=== PATIENT | female | born 1965 | race Caucasian/White ===

== ENCOUNTER 2019-10-11 13:50 | Inpatient (IN) ==
[~2019-10-11 13:50] MED LIST: Aminoglycoside Consult 1 EACH MC ONE
[2019-10-11] MEDS ORDERED: Isovue-370 500 ML BOTTLE IVP ONE (14:06)
[2019-10-11] MEDS ORDERED: *HR* Nalbuphine 10 MG/ML AMPUL IV ONE (14:12)
[2019-10-11 14:43] LABS: INR 1.4; Prothrombin Time 16.2 Seconds (9.4-12.1)
[2019-10-11 14:46] LABS: Hematocrit 31.6 % (35.3-44.9); Hemoglobin 9.2 g/dL (11.5-15.4); Mean Corpuscular HGB Conc 29.1 g/dL (31.6-35.5); Mean Corpuscular Hemoglobin 25.1 pg (28.0-33.3); Mean Corpuscular Volume 86.1 fL (83.0-100.0); Mean Platelet Volume 11.6 fL (9.4-12.4); Platelet Count 283 K/mcL (140-400); Red Blood Count 3.67 M/mcL (3.82-4.97)
[2019-10-11 14:54] LABS: Alanine Aminotransferase 5 Units/L (7-52); Albumin 3.6 g/dL (3.5-5.7); Albumin/Globulin Ratio 1.3 (1.1-2.2); Alkaline Phosphatase 57 Units/L (34-104); Aspartate Amino Transferase 12 Units/L (13-39); BUN/Creatinine Ratio 16 (6-26); Bilirubin,Total 0.5 mg/dL (0.3-1.0); Blood Urea Nitrogen 38 mg/dL (6-20); Calcium 9.2 mg/dL (8.6-10.3); Carbon Dioxide 17 mEq/L (23-29); Chloride 101 mEq/L (98-107); Globulin 2.8 g/dL (2.4-3.5); Glucose 93 mg/dL (70-105); Lipase 4 Units/L (11-82); Osmolality,Calculated 289 (280-300); Potassium 5.2 mEq/L (3.5-5.1); Sodium 135 mEq/L (136-145); Total Protein 6.4 g/dL (6.4-8.9); eGFR For African Americans 26 (> 60); eGFR For Non-African Americans 21 (> 60)
[2019-10-11 14:55] LABS: Troponin I < 0.03 ng/mL (< 0.04)
[2019-10-11 15:27] LABS: Lymphocytes # 1.3 K/mcL (0.6-4.6); Monocytes # 1.8 K/mcL (0.0-1.3); Platelet Estimate Normal (Normal)
[2019-10-11] MEDS ORDERED: levoFLOXacin 500 MG/100 ML 500 MG/100 ML BAG IVPB ONE (15:58)
[2019-10-11] MEDS ORDERED: Piperacillin/Tazobactam 3.375 GM in 0.9 % Sodium Chloride Mini Bag 100 ML IVPB ONE (15:58)
[2019-10-11] MEDS ORDERED: Piperacillin/Tazobactam 3.375 GM in Water for inj. (sterile) 20 ML IVP ONE (16:08)
[2019-10-11] MEDS ORDERED: 0.9 % Sodium Chloride 1,000 ML IVC ONE ×3 (16:27→16:28)
[2019-10-11 16:59] LABS: ABG Base Excess -6 mEq/L (-2 to 3); ABG HCO3 19 mEq/L (21-27); ABG Oxygen Saturation 99 % (95-98); ABG PCO2 37 mmHg (35-45); ABG PH 7.32 pH Units (7.32-7.45); ABG PO2 150 mmHg (85-104); ABG TCO2 20 mEq/L (20-26); Blood Gas Pressure Support 14 cm H2O
[2019-10-11 17:57] LABS: Thyroid Stimulating Hormone 3.613 mcIU/mL (0.340-5.600); Triiodothyronine (T3) Total 0.34 ng/mL (0.87-1.78)
[2019-10-11] MEDS ORDERED: Naloxone 0.4 MG/ML INJ IVP PRN (18:15)
[2019-10-11] MEDS ORDERED: D5% in Water 1,000 ML IVC PRN (18:15)
[2019-10-11] MEDS ORDERED: Dextrose Gel 15 GM/37.5 ML TUBE PO PRN ×2 (18:15)
[2019-10-11] MEDS ORDERED: *HR* Dextrose 50 % in Water (Syg) 50 ML SYRINGE IVP PRN (18:15)
[2019-10-11] MEDS ORDERED: Albuterol 2.5 MG/3 ML NEBULIZER IH PRN (18:25)
[2019-10-11] MEDS ORDERED: Vancomycin (wt based) 1,000 MG VIAL IVPB SCH (19:00)
[2019-10-11] MEDS: Dexmedetomidine HCl 400 MCG/100 ML MLS IVC SCH (19:43)
[2019-10-11 20:14] LABS: Estimated Average Glucose 169 mg/dl
[2019-10-11 20:18] LABS: ABG Base Excess -6 mEq/L (-2 to 3); ABG HCO3 19 mEq/L (21-27); ABG Oxygen Saturation 94 % (95-98); ABG PCO2 38 mmHg (35-45); ABG PH 7.32 pH Units (7.32-7.45); ABG PO2 75 mmHg (85-104); ABG TCO2 20 mEq/L (20-26); Blood Gas Modality NIV
[2019-10-11] MEDS: Ipratropium/Albuterol Neb 3 ML IH SCH ×2 (20:18→23:34)
[2019-10-11 20:49] LABS: Adenovirus Not Detected (Not Detect); Bordetella Pertussis Not Detected (Not Detect); Chlamydophila pneumoniae Not Detected (Not Detect); Coronavirus 229E Not Detected (Not Detect); Coronavirus HKU1 Not Detected (Not Detect); Coronavirus NL63 Not Detected (Not Detect); Coronavirus OC43 Not Detected (Not Detect); Human Metapneumovirus Not Detected (Not Detect); Human Rhinovirus/Enterovirus Not Detected (Not Detect); Influenza A Subtype 2009 H1 Not Detected (Not Detect); Influenza B Not Detected (Not Detect); Mycoplasma pneumoniae Not Detected (Not Detect); Parainfluenza Virus 1 Not Detected (Not Detect); Parainfluenza Virus 2 Not Detected (Not Detect); Parainfluenza Virus 3 Not Detected (Not Detect); Parainfluenza Virus 4 Not Detected (Not Detect); Respiratory Syncytial Virus Not Detected (Not Detect)
[2019-10-11 20:59] LABS: Albumin 3.1 g/dL (3.5-5.7); Albumin/Globulin Ratio 1.1 (1.1-2.2); Bilirubin,Total 0.4 mg/dL (0.3-1.0); Calcium 8.3 mg/dL (8.6-10.3); Globulin 2.7 g/dL (2.4-3.5); Potassium 5.7 mEq/L (3.5-5.1); Total Protein 5.8 g/dL (6.4-8.9)
[2019-10-11] MEDS ORDERED: Perflutren Lipid Microsphere 1.3 ML in 0.9 % Sodium Chloride 8.7 ML IVP ONE (21:24)
[2019-10-11 22:15] LABS: Bilirubin,Urine Small (Negative); Blood,Urine Negative (Negative); Clarity,Urine Cloudy (Clear); Color,Urine Yellow (Yellow); Glucose,Urine (UA) Normal (Normal); Ketones,Urine Trace mg/dL (Negative); Leukocyte Esterase,Urine Moderate (Negative); Nitrite,Urine Negative (Negative); Protein,Urine 100 mg/dL (Neg-Trace); Specific Gravity,Urine 1.026 (1.010-1.025); Urobilinogen,Urine Normal (Normal)
[2019-10-11 22:18] LABS: Bacteria,Urine None Seen per hpf (None-Few); Hyaline Casts,Urine None Seen per lpf (None-Few); Squamous Epithelial Cell,Urine Many per lpf (None-Few); WBC,Urine 50-100 per hpf (0-3)
[2019-10-11] MEDS: 0.9 % Sodium Chloride 1,000 ML IVC SCH (22:29)
[2019-10-11 22:33] LABS: Renal Epithelial Cells,Urine Few per hpf (None-Few)
[2019-10-11] MEDS: *HR* Heparin 5,000 UNIT/ML VIAL SQ SCH (23:58)
[2019-10-11] MEDS: Insulin LISPRO 300 UNITS/3 ML VIAL SQ SCH (23:59)
[2019-10-11] MEDS: Piperacillin/Tazobactam 3.375 GM in 0.9 % Sodium Chloride Mini Bag 100 ML IVPB SCH (23:59)
[2019-10-12] MEDS: Ipratropium/Albuterol Neb 3 ML IH SCH ×5 (03:28→20:50)
[2019-10-12 05:07] LABS: Hematocrit 24.5 % (35.3-44.9); Mean Corpuscular HGB Conc 30.2 g/dL (31.6-35.5); Mean Corpuscular Hemoglobin 25.8 pg (28.0-33.3); Mean Corpuscular Volume 85.4 fL (83.0-100.0); Mean Platelet Volume 11.2 fL (9.4-12.4); Platelet Count 200 K/mcL (140-400); Red Blood Count 2.87 M/mcL (3.82-4.97); Red Cell Distribution Width 14.9 % (11.5-14.5); White Blood Count 13.3 K/mcL (4.3-11.1)
[2019-10-12 05:11] LABS: INR 1.4; Prothrombin Time 16.4 Seconds (9.4-12.1)
[2019-10-12 05:13] LABS: Hemoglobin 7.4 g/dL (11.5-15.4)
[2019-10-12 05:26] LABS: Calcium 7.9 mg/dL (8.6-10.3); Potassium 5.7 mEq/L (3.5-5.1)
[2019-10-12] MEDS: Insulin LISPRO 300 UNITS/3 ML VIAL SQ SCH ×4 (05:32→23:24)
[2019-10-12] MEDS: Doxycycline 100 MG in 0.9 % Sodium Chloride Mini Bag 100 ML IVPB SCH ×2 (05:32→17:32)
[2019-10-12 05:45] LABS: Lymphocytes # 1.9 K/mcL (0.6-4.6); Monocytes # 0.5 K/mcL (0.0-1.3); Neutrophils # 10.9 K/mcL (1.6-8.9); Platelet Estimate Normal (Normal)
[2019-10-12] MEDS ORDERED: Calcium Gluconate 1gm/50mL 1 GM/50 ML BAG IVPB PRN (05:49)
[2019-10-12] MEDS ORDERED: Potassium Phosphate 44 MEQ in 0.9 % Sodium Chloride 250 ML IVPB PRN (05:49)
[2019-10-12] MEDS: Dexmedetomidine HCl 400 MCG/100 ML MLS IVC SCH ×2 (06:39→23:39)
[2019-10-12] MEDS: Piperacillin/Tazobactam 3.375 GM in 0.9 % Sodium Chloride Mini Bag 100 ML IVPB SCH ×3 (07:41→23:38)
[2019-10-12] MEDS: Pantoprazole 40 MG VIAL IVP SCH (07:41)
[2019-10-12] MEDS: *HR* Heparin 5,000 UNIT/ML VIAL SQ SCH ×3 (07:41→23:22)
[2019-10-12] MEDS ORDERED: Insulin Human Regular 10 UNIT in 0.9 % Sodium Chloride 10 ML IV ONE (09:20)
[2019-10-12] MEDS ORDERED: *HR* Dextrose 50 % in Water (Syg) 50 ML SYRINGE IVP ONE (09:20)
[2019-10-12] MEDS ORDERED: Calcium Gluconate 1gm/50mL 1 GM/50 ML BAG IVPB ONE (09:30)
[2019-10-12] MEDS: 0.9 % Sodium Chloride 1,000 ML IVC SCH (10:59)
[2019-10-12] MEDS: SODIUM ZIRCONIUM CYCLOSILICATE 5 GM POWD.PACK PO SCH (11:05)
[2019-10-12] MEDS: Albumin Human 5% 12.5 GM/250 ML IV.SOLN IVC SCH ×2 (11:06→11:27)
[2019-10-12 12:24] LABS: Protein/Creatinine Ratio,Urine 0.91 mg/mg (0.00-0.20)
[2019-10-12 15:16] LABS: Calcium 8.7 mg/dL (8.6-10.3); Magnesium 1.5 mg/dL (1.6-2.6); Potassium 4.6 mEq/L (3.5-5.1)
[2019-10-12 15:18] LABS: Creatine Kinase 58 Units/L (30-223); Iron < 10 mcg/dL (50-170); Transferrin 167 mg/dL (203-362); Uric Acid 8.3 mg/dL (2.3-7.6)
[2019-10-12 15:41] LABS: Folate 18.6 ng/mL (3.0-16.0)
[2019-10-12] MEDS: Acetaminophen 325 MG TABLET PO PRN (23:22)
[2019-10-13] MEDS: Ipratropium/Albuterol Neb 3 ML IH SCH ×7 (00:01→19:23)
[2019-10-13] MEDS: 0.9 % Sodium Chloride 1,000 ML IVC SCH ×2 (02:31→12:57)
[2019-10-13] MEDS: Insulin LISPRO 300 UNITS/3 ML VIAL SQ SCH ×4 (05:57→20:56)
[2019-10-13] MEDS: Doxycycline 100 MG in 0.9 % Sodium Chloride Mini Bag 100 ML IVPB SCH (05:58)
[2019-10-13 06:26] LABS: ABG Ionized Calcium 1.19 mmol/L (1.15-1.35)
[2019-10-13 06:56] LABS: Basophils % 0.2 %; Hematocrit 24.6 % (35.3-44.9); Hemoglobin 7.3 g/dL (11.5-15.4); Immature Granulocytes % 0.3 % (0-4); Lymphocytes # 1.1 K/mcL (0.6-4.6); Mean Corpuscular HGB Conc 29.7 g/dL (31.6-35.5); Mean Corpuscular Hemoglobin 24.9 pg (28.0-33.3); Mean Platelet Volume 11.9 fL (9.4-12.4); Monocytes # 0.5 K/mcL (0.0-1.3); Platelet Count 234 K/mcL (140-400); Red Blood Count 2.93 M/mcL (3.82-4.97); Red Cell Distribution Width 15.1 % (11.5-14.5); White Blood Count 11.5 K/mcL (4.3-11.1)
[2019-10-13 07:10] LABS: Magnesium 1.9 mg/dL (1.6-2.6); Phosphorous 3.4 mg/dL (2.7-4.5)
[2019-10-13 07:11] LABS: Calcium 8.9 mg/dL (8.6-10.3); Potassium 4.6 mEq/L (3.5-5.1)
[2019-10-13 08:27] LABS: Hypochromasia Present (Not Present); Platelet Estimate Normal (Normal); Toxic Granulation Present (Not Present)
[2019-10-13 08:29] LABS: Neutrophils # 10.4 K/mcL (1.6-8.9)
[2019-10-13] MEDS: *HR* Heparin 5,000 UNIT/ML VIAL SQ SCH ×2 (08:36→16:56)
[2019-10-13] MEDS: Pantoprazole 40 MG VIAL IVP SCH (08:36)
[2019-10-13] MEDS: Piperacillin/Tazobactam 3.375 GM in 0.9 % Sodium Chloride Mini Bag 100 ML IVPB SCH ×2 (08:37→16:56)
[2019-10-13] MEDS: SODIUM ZIRCONIUM CYCLOSILICATE 5 GM POWD.PACK PO SCH (08:46)
[2019-10-13 10:40] LABS: ABG Base Excess -1 mEq/L (-2 to 3); ABG HCO3 24 mEq/L (21-27); ABG Oxygen Saturation 94 % (95-98); ABG PCO2 41 mmHg (35-45); ABG PH 7.38 pH Units (7.32-7.45); ABG PO2 71 mmHg (85-104); ABG TCO2 25 mEq/L (20-26)
[2019-10-13] MEDS ORDERED: ALPRAZolam 0.5 MG TABLET PO PRN (12:43)
[2019-10-13] MEDS ORDERED: Levalbuterol Neb 1.25 MG/3 ML IH PRN ×2 (12:45→20:00)
[2019-10-13] MEDS: Acetaminophen 325 MG TABLET PO PRN ×2 (14:06→22:36)
[2019-10-13] MEDS ORDERED: *HR* Dextrose 50 % in Water (Syg) 50 ML SYRINGE IVP PRN (15:52)
[2019-10-13] MEDS ORDERED: Naloxone 0.4 MG/ML INJ IVP PRN (15:52)
[2019-10-13] MEDS ORDERED: Dextrose Gel 15 GM/37.5 ML TUBE PO PRN ×2 (15:52)
[2019-10-13] MEDS ORDERED: D5% in Water 1,000 ML IVC PRN (15:52)
[2019-10-13] MEDS ORDERED: Insulin LISPRO 300 UNITS/3 ML VIAL SQ SCH (18:00)
[2019-10-13] MEDS: OLANZapine 5 MG TAB.RAPDIS PO SCH (20:55)
[2019-10-13] MEDS: FLUoxetine 20 MG CAPSULE PO SCH (20:56)
[2019-10-13] MEDS ORDERED: FLUoxetine 20 MG CAPSULE PO SCH (21:00)
[2019-10-13] MEDS ORDERED: OLANZapine 5 MG TAB.RAPDIS PO SCH (21:00)
[2019-10-13] MEDS: Levalbuterol Neb 1.25 MG/3 ML IH SCH (23:21)
[2019-10-14] MEDS: *HR* Heparin 5,000 UNIT/ML VIAL SQ SCH ×4 (00:50→23:31)
[2019-10-14] MEDS: Piperacillin/Tazobactam 3.375 GM in 0.9 % Sodium Chloride Mini Bag 100 ML IVPB SCH ×2 (00:50→08:22)
[2019-10-14] MEDS ORDERED: Melatonin 3 MG TABLET PO ONE (02:10)
[2019-10-14] MEDS: Levalbuterol Neb 1.25 MG/3 ML IH SCH ×6 (03:17→23:23)
[2019-10-14 06:14] LABS: Basophils % 0.1 %; Eosinophils % 0.2 %; Hematocrit 28.4 % (35.3-44.9); Hemoglobin 8.4 g/dL (11.5-15.4); Immature Granulocytes % 0.7 % (0-4); Lymphocytes # 0.9 K/mcL (0.6-4.6); Lymphocytes % 6.9 %; Mean Corpuscular HGB Conc 29.6 g/dL (31.6-35.5); Mean Corpuscular Hemoglobin 24.7 pg (28.0-33.3); Mean Corpuscular Volume 83.5 fL (83.0-100.0); Monocytes # 0.6 K/mcL (0.0-1.3); Monocytes % 4.6 %; Neutrophils # 11.9 K/mcL (1.6-8.9); Platelet Count 279 K/mcL (140-400); Red Cell Distribution Width 15.3 % (11.5-14.5); Segmented Neutrophils % 87.5 %; White Blood Count 13.6 K/mcL (4.3-11.1)
[2019-10-14 06:30] LABS: % Iron Saturation 6 % (15-50); Alanine Aminotransferase 4 Units/L (7-52); Albumin 3.3 g/dL (3.5-5.7); Alkaline Phosphatase 77 Units/L (34-104); Aspartate Amino Transferase 21 Units/L (13-39); BUN/Creatinine Ratio 20 (6-26); Bilirubin,Total 0.6 mg/dL (0.3-1.0); Blood Urea Nitrogen 22 mg/dL (6-20); Calcium 9.4 mg/dL (8.6-10.3); Carbon Dioxide 24 mEq/L (23-29); Chloride 104 mEq/L (98-107); Globulin 3.2 g/dL (2.4-3.5); Glucose 215 mg/dL (70-105); Iron 15 mcg/dL (50-170); Magnesium 1.6 mg/dL (1.6-2.6); Osmolality,Calculated 292 (280-300); Phosphorous 2.7 mg/dL (2.7-4.5); Sodium 136 mEq/L (136-145); Total Protein 6.5 g/dL (6.4-8.9); Transferrin 179 mg/dL (203-362); eGFR For African Americans > 60 (> 60); eGFR For Non-African Americans 51 (> 60)
[2019-10-14] MEDS: Pantoprazole 40 MG VIAL IVP SCH (08:22)
[2019-10-14] MEDS: FLUoxetine 20 MG CAPSULE PO SCH (08:22)
[2019-10-14] MEDS: Insulin LISPRO 300 UNITS/3 ML VIAL SQ SCH ×4 (08:23→20:05)
[2019-10-14] MEDS: Acetaminophen 325 MG TABLET PO PRN (10:28)
[2019-10-14] MEDS: *HR* Promethazine 25 MG/ML VIAL IVP PRN ×2 (11:16→20:05)
[2019-10-14] MEDS: Ampicillin/Sulbactam 1,500 MG in 0.9 % Sodium Chloride Mini Bag 100 ML IVPB SCH ×3 (12:36→23:34)
[2019-10-14] MEDS: Cyanocobalamin (B-12) 1,000 MCG TABLET PO SCH (16:08)
[2019-10-14] MEDS: OLANZapine 5 MG TAB.RAPDIS PO SCH (20:05)
[2019-10-14] MEDS: ALPRAZolam 0.5 MG TABLET PO PRN (20:10)
[2019-10-15] MEDS: Levalbuterol Neb 1.25 MG/3 ML IH SCH ×5 (03:09→20:16)
[2019-10-15] MEDS: Ampicillin/Sulbactam 1,500 MG in 0.9 % Sodium Chloride Mini Bag 100 ML IVPB SCH ×4 (05:40→23:13)
[2019-10-15] MEDS ORDERED: Levothyroxine Sodium 100 MCG VIAL IVP SCH (06:30)
[2019-10-15 07:09] LABS: Hematocrit 26.1 % (35.3-44.9); Hemoglobin 7.7 g/dL (11.5-15.4); Mean Corpuscular HGB Conc 29.5 g/dL (31.6-35.5); Mean Corpuscular Hemoglobin 24.7 pg (28.0-33.3); Mean Corpuscular Volume 83.7 fL (83.0-100.0); Mean Platelet Volume 10.3 fL (9.4-12.4); Platelet Count 254 K/mcL (140-400); Red Blood Count 3.12 M/mcL (3.82-4.97); Red Cell Distribution Width 15.5 % (11.5-14.5); White Blood Count 11.6 K/mcL (4.3-11.1)
[2019-10-15 07:28] LABS: BUN/Creatinine Ratio 20 (6-26); Blood Urea Nitrogen 19 mg/dL (6-20); Calcium 9.1 mg/dL (8.6-10.3); Carbon Dioxide 24 mEq/L (23-29); Chloride 106 mEq/L (98-107); Glucose 201 mg/dL (70-105); Osmolality,Calculated 292 (280-300); Sodium 137 mEq/L (136-145); eGFR For African Americans > 60 (> 60); eGFR For Non-African Americans > 60 (> 60)
[2019-10-15 07:53] LABS: Bilirubin,Urine Small (Negative); Blood,Urine Negative (Negative); Clarity,Urine Clear (Clear); Color,Urine Yellow (Yellow); Glucose,Urine (UA) Normal (Normal); Ketones,Urine Trace mg/dL (Negative); Leukocyte Esterase,Urine Negative (Negative); Nitrite,Urine Negative (Negative); PH,Urine 5.5 pH Units (5.0-8.0); Protein,Urine >=300 mg/dL (Neg-Trace); Specific Gravity,Urine 1.028 (1.010-1.025); Urobilinogen,Urine Normal (Normal)
[2019-10-15 07:56] LABS: Bacteria,Urine None Seen per hpf (None-Few); Hyaline Casts,Urine Few per lpf (None-Few); RBC,Urine 0-3 per hpf (0-3); Squamous Epithelial Cell,Urine Many per lpf (None-Few)
[2019-10-15 08:15] LABS: Renal Epithelial Cells,Urine Few per hpf (None-Few); Yeast,Urine Few per hpf (None Seen)
[2019-10-15] MEDS: Insulin LISPRO 300 UNITS/3 ML VIAL SQ SCH ×4 (08:36→20:28)
[2019-10-15] MEDS: Pantoprazole 40 MG VIAL IVP SCH (08:36)
[2019-10-15] MEDS: *HR* Heparin 5,000 UNIT/ML VIAL SQ SCH ×3 (08:36→23:46)
[2019-10-15] MEDS: Cyanocobalamin (B-12) 1,000 MCG TABLET PO SCH (08:36)
[2019-10-15] MEDS: FLUoxetine 20 MG CAPSULE PO SCH (08:36)
[2019-10-15] MEDS ORDERED: Furosemide 40 MG/4 ML VIAL IVP ONE (13:37)
[2019-10-15] MEDS: OLANZapine 5 MG TAB.RAPDIS PO SCH (20:28)
[2019-10-15] MEDS: Insulin DETEMIR 100 UNIT/ML X5UNITS SQ SCH (20:28)
[2019-10-15] MEDS: Acetaminophen 325 MG TABLET PO PRN (20:31)
[2019-10-15] MEDS: ALPRAZolam 0.5 MG TABLET PO PRN (20:58)
[2019-10-16] MEDS: Levalbuterol Neb 1.25 MG/3 ML IH SCH ×7 (03:54→23:28)
[2019-10-16] MEDS: Ampicillin/Sulbactam 1,500 MG in 0.9 % Sodium Chloride Mini Bag 100 ML IVPB SCH ×4 (05:37→23:30)
[2019-10-16 05:48] LABS: Hematocrit 27.7 % (35.3-44.9); Hemoglobin 8.1 g/dL (11.5-15.4); Mean Corpuscular HGB Conc 29.2 g/dL (31.6-35.5); Mean Corpuscular Hemoglobin 24.6 pg (28.0-33.3); Mean Corpuscular Volume 84.2 fL (83.0-100.0); Mean Platelet Volume 11.4 fL (9.4-12.4); Platelet Count 255 K/mcL (140-400); Red Blood Count 3.29 M/mcL (3.82-4.97); Red Cell Distribution Width 15.4 % (11.5-14.5); White Blood Count 10.3 K/mcL (4.3-11.1)
[2019-10-16 05:53] LABS: BUN/Creatinine Ratio 26 (6-26); Blood Urea Nitrogen 28 mg/dL (6-20); Calcium 10.2 mg/dL (8.6-10.3); Carbon Dioxide 24 mEq/L (23-29); Chloride 106 mEq/L (98-107); Glucose 196 mg/dL (70-105); Osmolality,Calculated 303 (280-300); Potassium 4.7 mEq/L (3.5-5.1); Sodium 141 mEq/L (136-145); eGFR For African Americans > 60 (> 60); eGFR For Non-African Americans 52 (> 60)
[2019-10-16] MEDS: Furosemide 40 MG/4 ML VIAL IVP SCH ×2 (08:47→16:52)
[2019-10-16] MEDS: Insulin LISPRO 300 UNITS/3 ML VIAL SQ SCH ×4 (08:47→19:51)
[2019-10-16] MEDS: *HR* Heparin 5,000 UNIT/ML VIAL SQ SCH ×3 (08:47→23:31)
[2019-10-16] MEDS: Cyanocobalamin (B-12) 1,000 MCG TABLET PO SCH (08:48)
[2019-10-16] MEDS: FLUoxetine 20 MG CAPSULE PO SCH (08:48)
[2019-10-16] MEDS: Acetaminophen 325 MG TABLET PO PRN ×2 (12:31→22:01)
[2019-10-16] MEDS: Insulin DETEMIR 100 UNIT/ML X5UNITS SQ SCH (19:51)
[2019-10-16] MEDS: OLANZapine 5 MG TAB.RAPDIS PO SCH (19:51)
[2019-10-16] MEDS: ALPRAZolam 0.5 MG TABLET PO PRN (20:08)
[2019-10-17] MEDS: Levalbuterol Neb 1.25 MG/3 ML IH SCH ×6 (03:35→23:56)
[2019-10-17 04:06] LABS: Hematocrit 27.1 % (35.3-44.9); Hemoglobin 8.1 g/dL (11.5-15.4); Mean Corpuscular HGB Conc 29.9 g/dL (31.6-35.5); Mean Corpuscular Hemoglobin 25.5 pg (28.0-33.3); Mean Corpuscular Volume 85.2 fL (83.0-100.0); Mean Platelet Volume 10.6 fL (9.4-12.4); Platelet Count 263 K/mcL (140-400); Red Blood Count 3.18 M/mcL (3.82-4.97); Red Cell Distribution Width 15.2 % (11.5-14.5); White Blood Count 9.8 K/mcL (4.3-11.1)
[2019-10-17 04:28] LABS: BUN/Creatinine Ratio 26 (6-26); Blood Urea Nitrogen 27 mg/dL (6-20); Calcium 8.9 mg/dL (8.6-10.3); Carbon Dioxide 27 mEq/L (23-29); Chloride 104 mEq/L (98-107); Glucose 180 mg/dL (70-105); Osmolality,Calculated 298 (280-300); Potassium 3.6 mEq/L (3.5-5.1); Sodium 139 mEq/L (136-145); eGFR For African Americans > 60 (> 60); eGFR For Non-African Americans 56 (> 60)
[2019-10-17] MEDS: Ampicillin/Sulbactam 1,500 MG in 0.9 % Sodium Chloride Mini Bag 100 ML IVPB SCH ×4 (05:58→23:51)
[2019-10-17] MEDS: Acetaminophen 325 MG TABLET PO PRN (05:58)
[2019-10-17] MEDS: Furosemide 40 MG/4 ML VIAL IVP SCH ×2 (08:46→16:09)
[2019-10-17] MEDS: FLUoxetine 20 MG CAPSULE PO SCH (08:46)
[2019-10-17] MEDS: Cyanocobalamin (B-12) 1,000 MCG TABLET PO SCH (08:46)
[2019-10-17] MEDS: *HR* Heparin 5,000 UNIT/ML VIAL SQ SCH ×3 (08:46→23:53)
[2019-10-17] MEDS: Insulin LISPRO 300 UNITS/3 ML VIAL SQ SCH ×4 (08:47→20:37)
[2019-10-17] MEDS: *HR* Promethazine 25 MG/ML VIAL IVP PRN (16:53)
[2019-10-17] MEDS: ALPRAZolam 0.5 MG TABLET PO PRN (20:34)
[2019-10-17] MEDS: OLANZapine 5 MG TAB.RAPDIS PO SCH (20:34)
[2019-10-17] MEDS: Insulin DETEMIR 100 UNIT/ML X5UNITS SQ SCH (20:35)
[2019-10-18] MEDS: Levalbuterol Neb 1.25 MG/3 ML IH SCH ×6 (04:10→23:54)
[2019-10-18] MEDS: Ampicillin/Sulbactam 1,500 MG in 0.9 % Sodium Chloride Mini Bag 100 ML IVPB SCH ×4 (05:40→23:22)
[2019-10-18 06:45] LABS: White Blood Count 9.9 K/mcL (4.3-11.1)
[2019-10-18 06:46] LABS: Basophils % 0.4 %; Eosinophils # 0.2 K/mcL (0.0-0.6); Eosinophils % 1.5 %; Hematocrit 27.1 % (35.3-44.9); Lymphocytes # 2.1 K/mcL (0.6-4.6); Lymphocytes % 20.7 %; Mean Corpuscular HGB Conc 29.5 g/dL (31.6-35.5); Mean Corpuscular Hemoglobin 24.9 pg (28.0-33.3); Mean Corpuscular Volume 84.4 fL (83.0-100.0); Mean Platelet Volume 10.7 fL (9.4-12.4); Monocytes % 9.8 %; Neutrophils # 6.2 K/mcL (1.6-8.9); Nucleated Red Blood Cells 0.3 /100 WBC (0); Platelet Count 342 K/mcL (140-400); Red Blood Count 3.21 M/mcL (3.82-4.97); Red Cell Distribution Width 15.5 % (11.5-14.5); Segmented Neutrophils % 62.6 %
[2019-10-18 07:02] LABS: BUN/Creatinine Ratio 30 (6-26); Blood Urea Nitrogen 28 mg/dL (6-20); Calcium 8.8 mg/dL (8.6-10.3); Carbon Dioxide 28 mEq/L (23-29); Chloride 103 mEq/L (98-107); Glucose 188 mg/dL (70-105); Osmolality,Calculated 298 (280-300); Potassium 3.8 mEq/L (3.5-5.1); Sodium 139 mEq/L (136-145); eGFR For African Americans > 60 (> 60); eGFR For Non-African Americans > 60 (> 60)
[2019-10-18] MEDS: Cyanocobalamin (B-12) 1,000 MCG TABLET PO SCH (08:35)
[2019-10-18] MEDS: FLUoxetine 20 MG CAPSULE PO SCH (08:36)
[2019-10-18] MEDS: Furosemide 40 MG/4 ML VIAL IVP SCH ×2 (08:36→17:49)
[2019-10-18] MEDS: Insulin LISPRO 300 UNITS/3 ML VIAL SQ SCH ×4 (08:37→21:15)
[2019-10-18] MEDS: *HR* Heparin 5,000 UNIT/ML VIAL SQ SCH ×3 (08:37→23:22)
[2019-10-18] MEDS ORDERED: 0.9 % Sodium Chloride Mini Bag 100 ML ONE (11:58)
[2019-10-18] MEDS: OLANZapine 5 MG TAB.RAPDIS PO SCH (21:13)
[2019-10-18] MEDS: Acetaminophen 325 MG TABLET PO PRN (21:13)
[2019-10-18] MEDS: ALPRAZolam 0.5 MG TABLET PO PRN (21:13)
[2019-10-18] MEDS: Insulin DETEMIR 100 UNIT/ML X5UNITS SQ SCH (21:17)
[2019-10-19] MEDS: Levalbuterol Neb 1.25 MG/3 ML IH SCH ×6 (03:56→23:44)
[2019-10-19 05:00] LABS: Eosinophils # 0.2 K/mcL (0.0-0.6); Hematocrit 28.9 % (35.3-44.9); Hemoglobin 8.4 g/dL (11.5-15.4); Lymphocytes # 2.5 K/mcL (0.6-4.6); Mean Corpuscular HGB Conc 29.1 g/dL (31.6-35.5); Mean Corpuscular Hemoglobin 24.7 pg (28.0-33.3); Mean Platelet Volume 10.7 fL (9.4-12.4); Platelet Count 383 K/mcL (140-400); Red Cell Distribution Width 15.5 % (11.5-14.5); White Blood Count 10.5 K/mcL (4.3-11.1)
[2019-10-19 05:12] LABS: BUN/Creatinine Ratio 28 (6-26); Blood Urea Nitrogen 26 mg/dL (6-20); Calcium 9.1 mg/dL (8.6-10.3); Carbon Dioxide 28 mEq/L (23-29); Chloride 101 mEq/L (98-107); Glucose 191 mg/dL (70-105); Osmolality,Calculated 298 (280-300); Potassium 3.8 mEq/L (3.5-5.1); Sodium 139 mEq/L (136-145); eGFR For African Americans > 60 (> 60); eGFR For Non-African Americans > 60 (> 60)
[2019-10-19 06:15] LABS: Hypochromasia Present (Not Present); Monocytes # 0.2 K/mcL (0.0-1.3); Neutrophils # 7.6 K/mcL (1.6-8.9); Platelet Estimate Normal (Normal); Poikilocytosis 1+ (Not Present)
[2019-10-19] MEDS: Ampicillin/Sulbactam 1,500 MG in 0.9 % Sodium Chloride Mini Bag 100 ML IVPB SCH ×3 (06:22→17:24)
[2019-10-19] MEDS: *HR* Heparin 5,000 UNIT/ML VIAL SQ SCH ×2 (08:40→17:24)
[2019-10-19] MEDS: Insulin LISPRO 300 UNITS/3 ML VIAL SQ SCH ×4 (08:40→20:30)
[2019-10-19] MEDS: Furosemide 40 MG/4 ML VIAL IVP SCH ×2 (08:40→17:25)
[2019-10-19] MEDS: Cyanocobalamin (B-12) 1,000 MCG TABLET PO SCH (08:40)
[2019-10-19] MEDS: FLUoxetine 20 MG CAPSULE PO SCH (08:40)
[2019-10-19] MEDS: Acetaminophen 325 MG TABLET PO PRN ×2 (12:21→20:29)
[2019-10-19] MEDS: OLANZapine 5 MG TAB.RAPDIS PO SCH (20:29)
[2019-10-19] MEDS: Insulin DETEMIR 100 UNIT/ML X5UNITS SQ SCH (20:30)
[2019-10-20] MEDS: ALPRAZolam 0.5 MG TABLET PO PRN ×2 (00:15→22:05)
[2019-10-20] MEDS: *HR* Heparin 5,000 UNIT/ML VIAL SQ SCH ×4 (00:21→23:44)
[2019-10-20] MEDS: Ampicillin/Sulbactam 1,500 MG in 0.9 % Sodium Chloride Mini Bag 100 ML IVPB SCH ×5 (00:23→23:44)
[2019-10-20] MEDS: Levalbuterol Neb 1.25 MG/3 ML IH SCH ×6 (03:30→23:42)
[2019-10-20 04:47] LABS: Hematocrit 28.9 % (35.3-44.9); Hemoglobin 8.5 g/dL (11.5-15.4)
[2019-10-20] MEDS: Acetaminophen 325 MG TABLET PO PRN ×2 (08:47→17:27)
[2019-10-20] MEDS: Insulin LISPRO 300 UNITS/3 ML VIAL SQ SCH ×4 (09:46→19:52)
[2019-10-20] MEDS: Cyanocobalamin (B-12) 1,000 MCG TABLET PO SCH (09:47)
[2019-10-20] MEDS: FLUoxetine 20 MG CAPSULE PO SCH (09:48)
[2019-10-20] MEDS: Furosemide 40 MG/4 ML VIAL IVP SCH ×2 (09:48→17:28)
[2019-10-20] MEDS ORDERED: Insulin DETEMIR 100 UNIT/ML X5UNITS SQ ONE (11:59)
[2019-10-20] MEDS: OLANZapine 5 MG TAB.RAPDIS PO SCH (19:40)
[2019-10-20] MEDS: *HR* Promethazine 25 MG/ML VIAL IVP PRN (19:40)
[2019-10-20] MEDS ORDERED: Insulin DETEMIR 100 UNIT/ML X5UNITS SQ SCH (21:00)
[2019-10-21] MEDS: Levalbuterol Neb 1.25 MG/3 ML IH SCH ×4 (04:02→15:07)
[2019-10-21] MEDS: Ampicillin/Sulbactam 1,500 MG in 0.9 % Sodium Chloride Mini Bag 100 ML IVPB SCH ×2 (05:24→11:56)
[2019-10-21 06:39] LABS: Hematocrit 26.3 % (35.3-44.9); Hemoglobin 7.8 g/dL (11.5-15.4)
[2019-10-21] MEDS: Acetaminophen 325 MG TABLET PO PRN ×2 (06:47→14:56)
[2019-10-21] MEDS: Insulin LISPRO 300 UNITS/3 ML VIAL SQ SCH ×2 (08:47→11:55)
[2019-10-21] MEDS: Furosemide 40 MG/4 ML VIAL IVP SCH (08:48)
[2019-10-21] MEDS: *HR* Heparin 5,000 UNIT/ML VIAL SQ SCH (08:48)
[2019-10-21] MEDS: FLUoxetine 20 MG CAPSULE PO SCH (08:48)
[2019-10-21] MEDS: Cyanocobalamin (B-12) 1,000 MCG TABLET PO SCH (08:48)
[2019-10-21 11:49] VITALS: BP 138/76
== END 2019-10-21 16:12 | disposition home health service (06) | DRG 720 ==
LOC: EMEROOARM 13:50 → ICNU 17:54 → SUATTDRO 17:54 → ICNU 18:10 → 2ANU 10-13 18:11
PROVIDERS: ADMIT Pediatrics; ATTEND Internal Medicine

== ENCOUNTER 2020-09-01 14:01 | Inpatient (IN) ==
[2020-09-01 18:35] LABS: Basophils % 0.4 %; Eosinophils # 0.1 K/mcL (0.0-0.6); Eosinophils % 0.8 %; Hematocrit 32.8 % (35.3-44.9); Hemoglobin 10.1 g/dL (11.5-15.4); Immature Granulocytes % 0.4 % (0-4); Lymphocytes # 1.8 K/mcL (0.6-4.6); Lymphocytes % 19.7 %; Mean Corpuscular HGB Conc 30.8 g/dL (31.6-35.5); Mean Corpuscular Volume 97.3 fL (83.0-100.0); Monocytes # 0.8 K/mcL (0.0-1.3); Monocytes % 8.4 %; Neutrophils # 6.6 K/mcL (1.6-8.9); Platelet Count 314 K/mcL (140-400); Red Blood Count 3.37 M/mcL (3.82-4.97); Red Cell Distribution Width 13.4 % (11.5-14.5); Segmented Neutrophils % 70.3 %; White Blood Count 9.3 K/mcL (4.3-11.1)
[2020-09-01 18:39] LABS: INR 1.1; Prothrombin Time 12.5 Seconds (9.4-12.1)
[2020-09-01 18:42] LABS: Activated Partial Thrombo Time 29.9 Seconds (26.0-36.0)
[2020-09-01 18:55] LABS: Albumin 3.8 g/dL (3.5-5.7); Albumin/Globulin Ratio 1.2 (1.1-2.2); Bilirubin,Total 0.3 mg/dL (0.3-1.0); Calcium 9.1 mg/dL (8.6-10.3); Globulin 3.1 g/dL (2.4-3.5); Magnesium 1.2 mg/dL (1.6-2.6); Potassium 5.8 mEq/L (3.5-5.1); Total Protein 6.9 g/dL (6.4-8.9)
[2020-09-01 18:56] LABS: % Iron Saturation 11 % (15-50); Iron 32 mcg/dL (50-170); Transferrin 211 mg/dL (203-362)
[2020-09-01 19:04] LABS: Procalcitonin 0.13 ng/mL (0.00-0.15)
[2020-09-01] MEDS ORDERED: Dextrose Gel 15 GM/37.5 ML TUBE PO PRN ×2 (19:08)
[2020-09-01] MEDS ORDERED: Ondansetron 4 MG/2 ML VIAL IVP PRN (19:08)
[2020-09-01] MEDS ORDERED: Naloxone 0.4 MG/ML INJ IVP PRN (19:08)
[2020-09-01] MEDS ORDERED: *HR* Dextrose 50 % in Water (Vial) 50 ML VIAL IVP PRN (19:08)
[2020-09-01] MEDS ORDERED: D5% in Water 1,000 ML IVC PRN (19:08)
[2020-09-01 19:14] LABS: Ferritin 39 ng/mL (10-120)
[2020-09-01] MEDS ORDERED: Magnesium Oxide 400 MG TABLET PO ONE (19:14)
[2020-09-01] MEDS ORDERED: 0.9 % Sodium Chloride 1,000 ML IVC SCH (19:15)
[2020-09-01 19:20] LABS: Folate 17.7 ng/mL (3.0-16.0)
[2020-09-01] MEDS: Insulin LISPRO 300 UNITS/3 ML VIAL SUBQ SCH (20:52)
[2020-09-01] MEDS: Acetaminophen 325 MG TABLET PO PRN (21:07)
[2020-09-01] MEDS ORDERED: *HR* LORazepam 2 MG/ML VIAL IVP ONE (22:28)
[2020-09-02 04:31] LABS: Hematocrit 31.8 % (35.3-44.9); Hemoglobin 9.5 g/dL (11.5-15.4); Mean Corpuscular HGB Conc 29.9 g/dL (31.6-35.5); Mean Corpuscular Hemoglobin 29.4 pg (28.0-33.3); Mean Corpuscular Volume 98.5 fL (83.0-100.0); Mean Platelet Volume 11.3 fL (9.4-12.4); Platelet Count 305 K/mcL (140-400); Red Blood Count 3.23 M/mcL (3.82-4.97); Red Cell Distribution Width 13.4 % (11.5-14.5); White Blood Count 8.2 K/mcL (4.3-11.1)
[2020-09-02 04:45] LABS: Calcium 8.9 mg/dL (8.6-10.3); Chol/HDL Ratio 3.9 (0-4.9); Magnesium 1.3 mg/dL (1.6-2.6)
[2020-09-02 05:00] LABS: Thyroid Stimulating Hormone 3.428 mcIU/mL (0.340-5.600)
[2020-09-02 07:05] LABS: Estimated Average Glucose 166 mg/dl; Hemoglobin A1C 7.4 %
[2020-09-02] MEDS: amLODIPine 5 MG TABLET PO SCH (08:32)
[2020-09-02] MEDS: FLUoxetine 20 MG CAPSULE PO SCH (08:32)
[2020-09-02] MEDS: Insulin LISPRO 300 UNITS/3 ML VIAL SUBQ SCH ×4 (08:33→20:43)
[2020-09-02] MEDS: Acetaminophen 325 MG TABLET PO PRN ×2 (08:39→16:23)
[2020-09-02] MEDS ORDERED: ALPRAZolam 0.5 MG TABLET PO PRN (09:00)
[2020-09-02] MEDS ORDERED: *HR* OxyCODONE Immed Rel 5 MG TABLET PO PRN (12:37)
[2020-09-02] MEDS: Sodium Bicarbonate 75 MEQ in 0.45 % Sodium Chloride 1,000 ML IVC SCH (16:20)
[2020-09-02] MEDS: *HR* Heparin 5,000 UNIT/ML VIAL SQ SCH ×2 (16:21→20:43)
[2020-09-02] MEDS: OLANZapine 5 MG TAB.RAPDIS PO SCH (20:40)
[2020-09-03 02:02] LABS: Complement C3 165 mg/dL (87-200)
[2020-09-03 02:07] LABS: Hematocrit 31.9 % (35.3-44.9); Hemoglobin 9.9 g/dL (11.5-15.4); Mean Corpuscular Hemoglobin 30.7 pg (28.0-33.3); Mean Corpuscular Volume 98.8 fL (83.0-100.0); Mean Platelet Volume 11.1 fL (9.4-12.4); Platelet Count 319 K/mcL (140-400); Red Blood Count 3.23 M/mcL (3.82-4.97); Red Cell Distribution Width 13.3 % (11.5-14.5); White Blood Count 6.7 K/mcL (4.3-11.1)
[2020-09-03 02:28] LABS: Calcium 9.1 mg/dL (8.6-10.3); Potassium 4.6 mEq/L (3.5-5.1)
[2020-09-03] MEDS: *HR* Heparin 5,000 UNIT/ML VIAL SQ SCH ×3 (05:45→21:05)
[2020-09-03] MEDS: amLODIPine 5 MG TABLET PO SCH (08:11)
[2020-09-03] MEDS: FLUoxetine 20 MG CAPSULE PO SCH (08:11)
[2020-09-03] MEDS: Insulin LISPRO 300 UNITS/3 ML VIAL SUBQ SCH ×4 (08:15→21:05)
[2020-09-03] MEDS: Sodium Bicarbonate 75 MEQ in 0.45 % Sodium Chloride 1,000 ML IVC SCH (09:30)
[2020-09-03 09:42] LABS: Bilirubin,Urine Negative (Negative); Blood,Urine Negative (Negative); Clarity,Urine Clear (Clear); Color,Urine Colorless (Yellow); Glucose,Urine (UA) 300 mg/dL (Normal); Ketones,Urine Negative (Negative); Leukocyte Esterase,Urine Negative (Negative); Nitrite,Urine Negative (Negative); PH,Urine 6.5 pH Units (5.0-8.0); Protein,Urine 100 mg/dL (Neg-Trace); Specific Gravity,Urine 1.011 (1.010-1.025); Squamous Epithelial Cell,Urine Few per hpf (None-Few); Urobilinogen,Urine Normal (Normal); WBC,Urine 0-3 per hpf (0-3)
[2020-09-03 11:13] LABS: Protein/Creatinine Ratio,Urine 3.38 mg/mg (0.00-0.20)
[2020-09-03] MEDS: Acetaminophen 325 MG TABLET PO PRN (12:14)
[2020-09-03] MEDS ORDERED: Acetaminophen 325 MG TABLET PO PRN (12:46)
[2020-09-03] MEDS ORDERED: ALPRAZolam 0.5 MG TABLET PO ONE (20:57)
[2020-09-03] MEDS: OLANZapine 5 MG TAB.RAPDIS PO SCH (21:04)
[2020-09-03] MEDS: *HR* OxyCODONE Immed Rel 5 MG TABLET PO PRN (21:09)
[2020-09-04] MEDS: *HR* Heparin 5,000 UNIT/ML VIAL SQ SCH ×2 (05:36→12:58)
[2020-09-04] MEDS: *HR* OxyCODONE Immed Rel 5 MG TABLET PO PRN (05:37)
[2020-09-04 07:06] LABS: Calcium 9.3 mg/dL (8.6-10.3); Magnesium 1.5 mg/dL (1.6-2.6)
[2020-09-04] MEDS: FLUoxetine 20 MG CAPSULE PO SCH (08:35)
[2020-09-04] MEDS: amLODIPine 5 MG TABLET PO SCH (08:35)
[2020-09-04] MEDS: Insulin LISPRO 300 UNITS/3 ML VIAL SUBQ SCH ×3 (08:36→17:10)
[2020-09-04] MEDS ORDERED: 0.9 % Sodium Chloride 1,000 ML IVC SCH (11:15)
[2020-09-04] MEDS ORDERED: 0.9 % Sodium Chloride 500 ML IVC SCH (11:45)
[2020-09-04] MEDS ORDERED: FLU Vac QV 20-21 (6Month+)/PF 0.5 ML SYRINGE IM ONE (12:51)
[2020-09-04 16:44] VITALS: BP 137/78
[2020-09-05 06:56] LABS: ANA IgG by ELISA NONE DETECTED (None Detected)
[2020-09-05 07:46] LABS: GBM IgG Multiplex Bead Assay 0 AU/mL (0-19); Glomerular Basement Memb IgG NEGATIVE (Negative)
[2020-09-05 07:46] LABS: Serine Protease-3 Antibody 2 AU/mL (0-19)
== END 2020-09-04 18:04 | disposition home or self-care (01) | DRG 469 ==
LOC: 2ANU → SUATTDRO 17:17
PROVIDERS: ADMIT Internal Medicine; ATTEND Student in an Organized Health Care Education/Training Program

== ENCOUNTER 2022-01-14 23:13 | Observation (INO) ==
[2022-01-15] MEDS ORDERED: Isovue-370 500 ML BOTTLE IVP ONE (02:49)
[2022-01-15] MEDS ORDERED: cefTRIAXone 2,000 MG in 0.9 % Sodium Chloride 20 ML IVP ONE (02:50)
[2022-01-15] MEDS ORDERED: Vancomycin 1,750 MG/517.5 ML IV.SOLN IVPB ONE (03:00)
[2022-01-15 03:51] LABS: Basophils % 0.4 %; Eosinophils # 0.1 K/mcL (0.0-0.6); Hematocrit 37.1 % (35.3-44.9); Hemoglobin 11.2 g/dL (11.5-15.4); Immature Granulocytes % 0.4 % (0-4); Lymphocytes # 2.6 K/mcL (0.6-4.6); Lymphocytes % 26.3 %; Mean Corpuscular HGB Conc 30.2 g/dL (31.6-35.5); Mean Corpuscular Hemoglobin 30.1 pg (28.0-33.3); Mean Corpuscular Volume 99.7 fL (83.0-100.0); Mean Platelet Volume 11.3 fL (9.4-12.4); Monocytes # 0.8 K/mcL (0.0-1.3); Neutrophils # 6.4 K/mcL (1.6-8.9); Nucleated Red Blood Cells 0.2 /100 WBC (0); Platelet Count 199 K/mcL (140-400); Red Blood Count 3.72 M/mcL (3.82-4.97); Red Cell Distribution Width 13.6 % (11.5-14.5); Segmented Neutrophils % 63.9 %
[2022-01-15 04:00] LABS: Calcium 9.6 mg/dL (8.6-10.3); Potassium 4.7 mEq/L (3.5-5.1)
[2022-01-15] MEDS ORDERED: Ondansetron 4 MG/2 ML VIAL IVP PRN (05:10)
[2022-01-15] MEDS ORDERED: Naloxone 0.4 MG/ML INJ IVP PRN (05:10)
[2022-01-15] MEDS ORDERED: Ketorolac 30 MG/ML VIAL IVP PRN (05:10)
[2022-01-15] MEDS ORDERED: Dextrose Gel 15 GM/37.5 ML TUBE PO PRN ×2 (05:23)
[2022-01-15] MEDS ORDERED: *HR* Dextrose 50 % in Water (Syg) 50 ML SYRINGE IVP PRN (05:23)
[2022-01-15] MEDS ORDERED: D5% in Water 1,000 ML IVC PRN (05:23)
[2022-01-15] MEDS: Insulin LISPRO 300 UNITS/3 ML VIAL SUBQ SCH ×3 (08:52→16:41)
[2022-01-15] MEDS: Acetaminophen 325 MG TABLET PO PRN (10:21)
[2022-01-15] MEDS: *HR* Heparin 5,000 UNIT/ML VIAL SQ SCH ×2 (15:37→20:19)
[2022-01-16] MEDS ORDERED: Vancomycin 1,250 MG/262.5 ML IV.SOLN IVPB SCH (04:00)
[2022-01-16] MEDS: *HR* Heparin 5,000 UNIT/ML VIAL SQ SCH ×2 (04:07→13:52)
[2022-01-16 05:16] LABS: Basophils % 0.3 %; Eosinophils # 0.1 K/mcL (0.0-0.6); Eosinophils % 0.9 %; Hemoglobin 10.4 g/dL (11.5-15.4); Immature Granulocytes % 0.3 % (0-4); Lymphocytes # 1.9 K/mcL (0.6-4.6); Lymphocytes % 23.6 %; Mean Corpuscular HGB Conc 30.6 g/dL (31.6-35.5); Mean Corpuscular Hemoglobin 29.9 pg (28.0-33.3); Mean Corpuscular Volume 97.7 fL (83.0-100.0); Mean Platelet Volume 11.1 fL (9.4-12.4); Monocytes # 0.7 K/mcL (0.0-1.3); Monocytes % 9.1 %; Neutrophils # 5.2 K/mcL (1.6-8.9); Platelet Count 265 K/mcL (140-400); Red Blood Count 3.48 M/mcL (3.82-4.97); Red Cell Distribution Width 13.8 % (11.5-14.5); Segmented Neutrophils % 65.8 %; White Blood Count 7.8 K/mcL (4.3-11.1)
[2022-01-16 05:37] LABS: Calcium 9.1 mg/dL (8.6-10.3); Potassium 4.6 mEq/L (3.5-5.1)
[2022-01-16] MEDS ORDERED: cefTRIAXone 1,000 MG in 0.9 % Sodium Chloride Mini Bag 100 ML IVPB SCH (06:00)
[2022-01-16] MEDS ORDERED: ALPRAZolam 0.5 MG TABLET PO PRN (07:40)
[2022-01-16] MEDS: Insulin LISPRO 300 UNITS/3 ML VIAL SUBQ SCH ×2 (08:15→11:45)
[2022-01-16] MEDS ORDERED: (Mirabegron [Myrbetriq] 50 MG Tab.Er.24h) PO SCH (09:00)
[2022-01-16] MEDS ORDERED: Cyanocobalamin (B-12) 1,000 MCG TABLET PO SCH (09:00)
[2022-01-16] MEDS ORDERED: cefTRIAXone 2,000 MG in 0.9 % Sodium Chloride 20 ML IVPB SCH (09:00)
[2022-01-16] MEDS ORDERED: FLUoxetine 20 MG CAPSULE PO SCH (09:00)
[2022-01-16] MEDS ORDERED: Furosemide 40 MG TABLET PO SCH (09:00)
[2022-01-16] MEDS ORDERED: amLODIPine 5 MG TABLET PO SCH (09:00)
[2022-01-16 10:43] VITALS: BP 144/82; PULSE 90; TEMP 98.1; O2SAT 96
[2022-01-16] MEDS: Acetaminophen 325 MG TABLET PO PRN (11:45)
== END 2022-01-16 14:49 | disposition home or self-care (01) ==
LOC: EMEROOARM 23:13 → 3ANU 23:13 → SUATTDRO 01-15 05:30 → 3ANU 01-15 06:07
PROVIDERS: ADMIT Internal Medicine; ATTEND General Practice